=== PATIENT | female | born 1985 | race Caucasian/White ===

== ENCOUNTER → 2016-07-08 | Outpatient (REF) | payer OTHER ==
[2016-07-08 12:07] LABS: BASO % 0.4 % (0.0-1.0); EOS # 0.2 K/mm3 (0.0-0.50); EOS % 3.6 % (0.0-3.0); LYMPH # 1.9 K/mm3 (1.5-4.5); LYMPH % 27.2 % (24.0-44.0); MEAN CORPUSCULAR HEMOGLOBIN 28.8 pg (27.0-33.0); MEAN CORPUSCULAR HGB CONC 33.8 g/dl (32.0-36.5); MONO # 0.3 K/mm3 (0.0-0.8); MONO % 4.6 % (0.0-5.0); NEUTROPHILS # 4.3 K/mm3 (1.8-7.7); WHITE BLOOD COUNT 6.8 K/mm3 (4.0-10.0)
[2016-07-08 12:22] LABS: FOLATE 10.8 NG/ML; VITAMIN B12 LEVEL 763 PG/ML
[2016-07-08 12:30] LABS: ALBUMIN 3.8 GM/DL (3.2-5.2); ALBUMIN/GLOBULIN RATIO 1.19 (1.00-1.93); ALKALINE PHOSPHATASE 117 U/L (45-117); ALT/SGPT 19 U/L (12-78); ANION GAP 8 MEQ/L (8-16); AST/SGOT 8 U/L (15-37); BILIRUBIN,TOTAL 0.2 MG/DL (0.2-1.0); BLOOD UREA NITROGEN 17 MG/DL (7-18); CALCIUM LEVEL 8.9 MG/DL (8.5-10.1); CARBON DIOXIDE LEVEL 26 MEQ/L (21-32); CHLORIDE LEVEL 108 MEQ/L (98-107); CHOLESTEROL LEVEL 155 MG/DL (<200); CREATININE FOR GFR 0.73 MG/DL (0.55-1.02); GLOMERULAR FILTRATION RATE > 60.0 (>60); GLUCOSE, FASTING 88 MG/DL (70-105); POTASSIUM SERUM 3.6 MEQ/L (3.5-5.1); SODIUM LEVEL 142 MEQ/L (136-145); TRIGLYCERIDES LEVEL 151 MG/DL (<150)
== END | disposition home or self-care (01) ==
LOC: M LABDRAW1 11:36
PROVIDERS: ATTEND Physician Assistant Medical
DX: K21.9 Gastro-esophageal reflux disease without esophagitis (principal); F33.8 Other recurrent depressive disorders; E55.9 Vitamin D deficiency, unspecified; E78.2 Mixed hyperlipidemia; L63.9 Alopecia areata, unspecified; E66.9 Obesity, unspecified

== ENCOUNTER → 2016-08-10 | Outpatient (REF) | payer OTHER | END | disposition home or self-care (01) | LOC: M LAB REF 14:01 | PROVIDERS: ATTEND Advanced Practice Midwife | DX: Z01.419 Encounter for gynecological examination (general) (routine) without abnormal findings (principal); Z11.51 Encounter for screening for human papillomavirus (HPV); R87.610 Atypical squamous cells of undetermined significance on cytologic smear of cervix (ASC-US) ==

== ENCOUNTER → 2016-09-28 | Outpatient (CLI) | payer OTHER | LOC: M LAB 07:46 | PROVIDERS: ATTEND Physician Assistant Medical | DX: E55.9 Vitamin D deficiency, unspecified (principal); M13.80 Other specified arthritis, unspecified site ==

== ENCOUNTER → 2016-10-04 | Outpatient (REF) | payer OTHER | LOC: M LAB REF 09:29 | PROVIDERS: ATTEND Obstetrics & Gynecology | DX: R87.610 Atypical squamous cells of undetermined significance on cytologic smear of cervix (ASC-US) (principal); R87.612 Low grade squamous intraepithelial lesion on cytologic smear of cervix (LGSIL) ==

== ENCOUNTER → 2016-10-20 | Outpatient (CLI) | payer OTHER ==
[2016-10-20 11:11] LABS: CONTROL LINE HCG INT CTR LINE PRESENT
== END ==
LOC: M LAB 10:25
PROVIDERS: ATTEND Physician Assistant Medical
DX: N94.89 Other specified conditions associated with female genital organs and menstrual cycle (principal)

== ENCOUNTER 2016-10-26 07:34 | Emergency (ER) | payer OTHER ==
[~2016-10-26] VITALS: Ht 165.1 cm; Wt 117.9 kg
[2016-10-26 07:45] VITALS: BP 134/86
[2016-10-26 08:11] LABS: CONTROL LINE UCG INT CTR LINE PRESENT
== END 2016-10-26 08:27 | disposition home or self-care (01) ==
LOC: M ED 07:58
DX: Z32.02 Encounter for pregnancy test, result negative (principal)

== ENCOUNTER → 2016-11-02 | Outpatient (CLI) | payer OTHER ==
[2016-11-02 08:51] LABS: ALBUMIN 3.6 GM/DL (3.2-5.2); ALBUMIN/GLOBULIN RATIO 1.13 (1.00-1.93); ALKALINE PHOSPHATASE 121 U/L (45-117); ALT/SGPT 22 U/L (12-78); ANION GAP 5 MEQ/L (8-16); AST/SGOT 12 U/L (15-37); BILIRUBIN,TOTAL 0.2 MG/DL (0.2-1.0); BLOOD UREA NITROGEN 13 MG/DL (7-18); CALCIUM LEVEL 8.4 MG/DL (8.5-10.1); CARBON DIOXIDE LEVEL 28 MEQ/L (21-32); CHLORIDE LEVEL 107 MEQ/L (98-107); CHOLESTEROL LEVEL 134 MG/DL (<200); CREATININE FOR GFR 0.65 MG/DL (0.55-1.02); GLOMERULAR FILTRATION RATE > 60.0 (>60); GLUCOSE, FASTING 91 MG/DL (70-105); SODIUM LEVEL 140 MEQ/L (136-145); TOTAL PROTEIN 6.8 GM/DL (6.4-8.2); TRIGLYCERIDES LEVEL 153 MG/DL (<150)
== END ==
LOC: M LAB 07:56
PROVIDERS: ATTEND Physician Assistant Medical
DX: E78.2 Mixed hyperlipidemia (principal)

== ENCOUNTER → 2016-11-02 | Outpatient (CLI) | payer OTHER ==
[2016-11-02 08:44] LABS: MEAN CORPUSCULAR HEMOGLOBIN 28.9 pg (27.0-33.0); MEAN CORPUSCULAR HGB CONC 33.1 g/dl (32.0-36.5); MEAN CORPUSCULAR VOLUME 87.3 fl (80.0-96.0)
[2016-11-02 08:57] LABS: FREE T4 0.94 NG/DL (0.76-1.46); HCG, SERUM QUANTITATIVE < 1.0 MIU/ML; PROGESTERONE < 0.2 NG/ML; PROLACTIN 12.9 NG/ML
[2016-11-02 09:48] LABS: FOLLICLE STIMULATING HORMONE 5.3 mIU/mL
[2016-11-03 15:53] LABS: ESTRADIOL 35.9 PG/ML
[2016-11-03 15:53] LABS: WHITE BLOOD COUNT 6.2 K/mm3 (4.0-10.0)
[2016-11-05 00:06] LABS: 17 HYDROXY PROGESTERONE 53 ng/dL (.)
== END ==
LOC: M LAB 07:51
PROVIDERS: ATTEND Advanced Practice Midwife
DX: N92.6 Irregular menstruation, unspecified (principal)

== ENCOUNTER → 2016-11-04 | Outpatient (CLI) | payer OTHER ==
--- NOTE | 2016-11-04 19:20 | REP ---
PELVIC ULTRASOUND: Real-time sonographic evaluation of the pelvis was performed utilizing transabdominal and endovaginal technique. The bladder measures 7.8 x 5.3 x 7.0 cm. The uterus measures 6.6 x 2.8 x 4.4 cm. Endometrial thickness is 8 mm. There is no endometrial fluid collection. Ovaries are normal in size and echotexture, right ovary measuring 3.2 x 2.5 x 2.9 cm and the left ovary measuring 2.9 x 2.6 x 2.4 cm. There is no adnexal mass or free fluid. Subcentimeter Nabothian cyst is seen in the region of the cervix. IMPRESSION: Negative pelvic ultrasound. Signed by Lencho Dutton MD 11/04/2016 08:07 P
== END ==
LOC: M RAD 13:40
PROVIDERS: ATTEND Advanced Practice Midwife
DX: N92.0 Excessive and frequent menstruation with regular cycle (principal)

== ENCOUNTER → 2017-02-08 | Outpatient (CLI) | payer OTHER ==
[~2017-02-08] MED LIST: BUPR150T3 PO; IBUP-1022 PO; TOPA50TA8 PO; [UNRECOGNIZED DRUG - CODE] XX
[2017-02-08 18:02] LABS: CONTROL LINE HCG INT CTR LINE PRESENT
== END ==
LOC: M SMT 13:34
PROVIDERS: ATTEND Advanced Practice Midwife
DX: Z11.3 Encounter for screening for infections with a predominantly sexual mode of transmission (principal); N91.1 Secondary amenorrhea

== ENCOUNTER 2017-02-13 09:27 | Emergency (ER) | payer OTHER ==
[~2017-02-13] VITALS: Ht 165.1 cm; Wt 109.1 kg
[2017-02-13] MEDS ORDERED: BUPR150T3 PO (09:58)
[2017-02-13] MEDS ORDERED: TOPA50TA8 PO (09:58)
--- NOTE | 2017-02-13 11:42 | REP ---
RIGHT ANKLE SERIES: Four views. HISTORY: Trauma. FINDINGS: Four views right ankle are compared with the August 04, 2007 prior study. Ankle mortise is intact. No fracture or subluxation is seen. IMPRESSION: Mild lateral swelling. No fracture seen. Signed by Pranav Dixon MD 02/13/2017 12:35 P
[2017-02-13] MEDS ORDERED: IBUP-1022 PO (11:52)
[2017-02-13] MEDS ORDERED: [UNRECOGNIZED DRUG - CODE] XX (11:52)
[2017-02-13 12:19] VITALS: BP 111/61
== END 2017-02-13 12:23 | disposition home or self-care (01) ==
LOC: M ED 09:27
DX: S93.401A Sprain of unspecified ligament of right ankle, initial encounter (principal); S90.811A Abrasion, right foot, initial encounter; X50.1XXA Overexertion from prolonged static or awkward postures, initial encounter; Y92.009 Unspecified place in unspecified non-institutional (private) residence as the place of occurrence of the external cause; Y93.89 Activity, other specified; Y99.8 Other external cause status; Z79.899 Other long term (current) drug therapy

== ENCOUNTER → 2017-04-05 | Outpatient (CLI) | payer OTHER ==
[2017-04-05 10:55] LABS: BASO % 0.2 % (0.0-1.0); EOS # 0.3 10^3/uL (0.0-0.50); IMMATURE GRANULOCYTE % 0.2 % (0-0); LYMPH # 2.3 10^3/uL (1.5-4.5); LYMPH % 25.5 % (24.0-44.0); MEAN CORPUSCULAR HEMOGLOBIN 28.8 pg (27.0-33.0); MEAN CORPUSCULAR HGB CONC 33.3 g/dl (32.0-36.5); MEAN CORPUSCULAR VOLUME 86.3 fl (80.0-96.0); MONO # 0.5 10^3/uL (0.0-0.8); MONO % 5.6 % (0.0-5.0); NEUTROPHILS # 5.9 10^3/uL (1.8-7.7); NEUTROPHILS % 65.5 % (36.0-66.0); RED CELL DISTRIBUTION WIDTH 13.5 % (11.5-14.5)
[2017-04-05 11:22] LABS: ALBUMIN 3.6 GM/DL (3.2-5.2); ALBUMIN/GLOBULIN RATIO 1.09 (1.00-1.93); ALKALINE PHOSPHATASE 105 U/L (45-117); ALT/SGPT 21 U/L (12-78); ANION GAP 5 MEQ/L (8-16); AST/SGOT 11 U/L (15-37); BILIRUBIN,TOTAL 0.3 MG/DL (0.2-1.0); BLOOD UREA NITROGEN 11 MG/DL (7-18); CALCIUM LEVEL 9.4 MG/DL (8.5-10.1); CARBON DIOXIDE LEVEL 30 MEQ/L (21-32); CHLORIDE LEVEL 102 MEQ/L (98-107); CHOLESTEROL LEVEL 173 MG/DL (<200); CREATININE FOR GFR 0.59 MG/DL (0.55-1.02); GLOMERULAR FILTRATION RATE > 60.0 (>60); GLUCOSE, FASTING 83 MG/DL (70-105); POTASSIUM SERUM 4.7 MEQ/L (3.5-5.1); SODIUM LEVEL 137 MEQ/L (136-145); TOTAL PROTEIN 6.9 GM/DL (6.4-8.2); TRIGLYCERIDES LEVEL 116 MG/DL (<150)
== END ==
LOC: M LAB 09:56
PROVIDERS: ATTEND Physician Assistant Medical
DX: E78.2 Mixed hyperlipidemia (principal)

== ENCOUNTER 2017-08-19 07:34 | Emergency (ER) | payer OTHER | END 2017-08-19 08:38 | disposition home or self-care (01) | LOC: M ED 07:34 | DX: J02.9 Acute pharyngitis, unspecified (principal); F41.9 Anxiety disorder, unspecified; F33.9 Major depressive disorder, recurrent, unspecified; Z79.899 Other long term (current) drug therapy | CPT/HCPCS: 87880 ==

== ENCOUNTER → 2018-03-19 | Outpatient (REF) | payer OTHER | LOC: M SFHCPLAZ 14:02 | DX: Z00.00 Encounter for general adult medical examination without abnormal findings (principal); L65.9 Nonscarring hair loss, unspecified; F32.9 Major depressive disorder, single episode, unspecified; Z68.41 Body mass index [BMI] 40.0-44.9, adult; Z13.220 Encounter for screening for lipoid disorders ==

== ENCOUNTER → 2018-06-07 | Outpatient (CLI) | payer OTHER ==
[2018-06-07 15:12] LABS: HEMOGLOBIN 14.3 g/dl (12.0-15.5); MEAN CORPUSCULAR HEMOGLOBIN 28.6 pg (27.0-33.0); MEAN CORPUSCULAR HGB CONC 33.3 g/dl (32.0-36.5); PLATELET COUNT, AUTOMATED 231 10^3/uL (150-450); RED CELL DISTRIBUTION WIDTH 12.8 % (11.5-14.5); WHITE BLOOD COUNT 7.6 10^3/uL (4.0-10.0)
[2018-06-07 15:56] LABS: PROLACTIN 16.4 NG/ML
== END ==
LOC: M LAB 14:05
DX: N93.9 Abnormal uterine and vaginal bleeding, unspecified (principal)
CPT/HCPCS: 84146

== ENCOUNTER → 2018-06-07 | Outpatient (CLI) | payer OTHER | LOC: M RAD 13:54 | DX: N93.9 Abnormal uterine and vaginal bleeding, unspecified (principal) | CPT/HCPCS: 76856 ==

== ENCOUNTER → 2019-02-08 | Outpatient (REF) | payer OTHER ==
[2019-02-08 19:33] LABS: CHLAMYDIA DNA AMPLIFICATION NEGATIVE (NEGATIVE); GC DNA AMPLIFICATION NEGATIVE (NEGATIVE)
== END ==
LOC: M LAB REF 16:21
PROVIDERS: ATTEND Physician Assistant Medical
DX: Z11.3 Encounter for screening for infections with a predominantly sexual mode of transmission (principal)

== ENCOUNTER → 2019-05-24 | Outpatient (REF) | payer OTHER ==
[2019-05-24 17:41] LABS: APPEARANCE, URINE HAZY (CLEAR); BACTERIA, URINE AUTO NEGATIVE (NEGATIVE); BILIRUBIN, URINE AUTO NEGATIVE (NEGATIVE); BLOOD, URINE BLOOD NEGATIVE (NEGATIVE); COLOR, URINE YELLOW (YELLOW); GLUCOSE, URINE (UA) AUTO NEGATIVE (NEGATIVE); KETONE, URINE AUTO NEGATIVE (NEGATIVE); LEUKOCYTE ESTERASE, URINE AUTO NEGATIVE (NEGATIVE); MUCUS, URINE SMALL (NEGATIVE); NITRITE, URINE AUTO NEGATIVE (NEGATIVE); PROTEIN, URINE AUTO NEGATIVE (NEGATIVE); RBC, URINE AUTO 0 /HPF (0-3); SPECIFIC GRAVITY URINE AUTO 1.027 (1.002-1.035); SQUAMOUS EPITHELIAL CELL UR AU 3 /HPF (0-6); UROBILINOGEN, URINE AUTO 0.2 mg/dL (0.0-2.0); WBC, URINE AUTO 1 /HPF (0-3)
== END ==
LOC: M LAB REF 16:29
PROVIDERS: ATTEND Physician Assistant Medical
DX: N39.0 Urinary tract infection, site not specified (principal)

== ENCOUNTER → 2020-12-05 | Outpatient (REF) | payer OTHER ==
[~2020-12-05] MED LIST changes: +BUPR150T12 PO; -BUPR150T3 PO
== END ==
LOC: M LAB REF 18:42
PROVIDERS: ATTEND Physician Assistant
DX: N39.3 Stress incontinence (female) (male) (principal)

== ENCOUNTER 2021-04-11 15:14 | Emergency (ER) | payer OTHER ==
[~2021-04-11] VITALS: Ht 165.1 cm; Wt 122.7 kg
--- OUTSIDE RECORDS SUMMARY | 2021-04-11 15:20 | CCD | Continuity of Care Document ---
Author Author JOSUE RODRIGUEZ, Zarina Concepcion Organization Unknown Address [address] [place] [id number] Phone [phone] Care Team Providers Care Transformer Tester Name Role Phone AUTM Unavailable Elaine Aisf N.P. AUTM [phone] Nneka Degroot M.D. AUTM [phone] Problems Description No Active Problems Social History Type Date Description Comments Sex Unknown ETOH Use Denies alcohol use Tobacco Use Start: Unknown Social smoker Recreational Drug Use Denies Drug Use Exercise Type/Frequency Occasional Mild Exercise Allergies, Adverse Reactions, Alerts Description No Known Drug Allergies Medications Active Medications SIG Qnty Indications Ordering Provide r Date Bupropion Hydrochloride ER (XL) 300mg Tablets ER 24HR 1 by mouth every day Unknown 000 Lamotrigine 150mg Tablets 1 p o daily Unknown Dextroamphetamine Sulfate 30mg Tab lets 1 po daily Unknown Sertraline HCL 50mg Tablets 1 by mouth every day Unknown Immunizations Description No Information Available Vital Signs Date Vital Result Comment 03/16/2021 1:12pm BP Systolic 114 mmHg BP Diastolic 80 mmHg Heart Rate 91 /min Body Temperature 98.4 F Height 65 inches 5'5" Weight 278.50 lb BMI (Body Mass Index) 46.3 kg/m2 [place] Body Weight 125 lb Weight 126.328 kg BSA (Body Surface Area) 2.28 m2 04/04/2017 1:33pm BP Systolic 124 mmHg BP Diastolic 84 mmHg Height 65 inches 5'5" Weight 251.00 lb BMI (Body Mass Index) 41.8 kg/m2 [place] Body Weight 125 lb Weight 113.854 kg BSA (Body Surface Area) 2.18 m2 Results Description No Information Available Procedures Date Code Description Status 03/16/2021 81552 Office/Outpatient New MDM 15- 29 Minutes Completed Medical Devices Description No Information Available Encounters Type Date Location Provider Dx Diagnosis Office Visit 03/16/2021 1:00p [facility] Luis Fernando Valadez MD L98.9 Disorder of the skin and sub cutaneous tissue, unspecified Assessments Date Code Description Provider 03/16/2021 L98.9 Skin lesion Aubrey alcazar MD Plan of Treatment 03/16/2021 - Aubrey Valadez MD* L98.9 Skin lesion* Comments:* This could just been a small follicular pimple-like abscess that self drained. I do not see or note any underlying cyst, lump at the subcutaneous tissue just a mild chronic skin change associated with those pimple-like growth. Could also possibly be some localized skin reaction to the warmth, sweating during summer. I do not see anything to be biopsied or removed at this point.Follow- up as needed Functional Status Description No Information Available Mental Status Description No Information Available Referrals Refer to Reason for Referral Status Appt Date Aubrey Valadez MD ABDOMINAL CHEST WALL CYST Scheduled 03/16/[address] [place] [address] [phone]
--- OUTSIDE RECORDS SUMMARY | 2021-04-11 15:20 | CCD | Continuity of Care Document ---
Author Author JOSUE RODRIGUEZ, Zarina Concepcion Organization Unknown Address [address] [place] [address] Phone [phone] Care Team Providers Care Red Mud Thickener Operator Name Role Phone AUTM Unavailable Elaine Asif N.P. AUTM [phone] Nneka Degroot M.D. AUTM [phone] Problems Description No Active Problems Social History [...] lb BMI (Body Mass Index) 46.3 kg/m2 [place] Body Weight 125 lb Weight 126.328 kg BSA (Body Surface Area) 2.28 m2 04/04/2017 1:33pm BP Systolic 124 mmHg BP Diastolic 84 mmHg Height 65 inches 5'5" Weight 251.00 lb BMI (Body Mass Index) 41.8 kg/m2 [place] Body Weight 125 lb Weight 113.854 kg BSA (Body Surface Area) 2.18 m2 Results Description No Information Available Procedures Description No Information Available Medical Devices Description No Information Available Encounters Description No Information Available Assessments Description No Information Available Plan of Treatment No Information Available Functional Status Description No Information Available Mental Status Description No Information Available Referrals Refer to Reason for Referral Status Appt Date Aubrey Valadez MD ABDOMINAL CHEST WALL CYST Scheduled 03/16/2021 [address] [id number] [phone]
--- OUTSIDE RECORDS SUMMARY | 2021-04-11 15:20 | CCD ---
Author Author [facility] Organization [facility] Address Unknown Phone Unavailable Care Team Providers Care Dtp Operator Name Role Phone Radha SALAS MD Unavailable Unavailable Radha SALAS MD Unavailable Unavailable Radha SALAS MD Unavailable Unavailable Radha SALAS MD Unavailable Unavailable Radha SALAS MD Unavailable Unavailable Radha SALAS MD Unavailable Unavailable Radha SALAS MD Unavailable Unavailable Radha SALAS MD Unavailable Unavailable Radha SALAS MD Unavailable Unavailable Radha SALAS MD Unavailable Unavailable Radha SALAS MD Unavailable Unavailable Radha SALAS MD Unavailable Unavailable Radha SALAS MD Unavailable Unavailable Radha SALAS MD Unavailable Unavailable Radha SALAS MD Unavailable Unavailable Radha SALAS MD Unavailable Unavailable Radha SAALS MD Unavailable Unavailable Radha SALAS MD Unavailable Unavailable Radha SALAS MD Unavailable Unavailable Radha SALAS MD Unavailable Unavailable Radha SALAS MD Unavailable Unavailable Radha SALAS MD Unavailable Unavailable Radha SALAS MD Unavailable Unavailable Radha SALAS MD Unavailable Unavailable Radha SALAS MD Unavailable Unavailable Radha SALAS MD Unavailable Unavailable MANUELANADIARadha MD Unavailable Unavailable Radha SALAS MD Unavailable Unavailable Radha SALAS MD Unavailable Unavailable MANUELANADIARadha MD Unavailable Unavailable Radha SALAS MD Unavailable Unavailable MANUELANADIARadha MD Unavailable Unavailable MANUELANADIARadha MD Unavailable Unavailable Radha SALAS MD Unavailable Unavailable Pleskach, Elaine BALLING HEAD TENDER Unavailable Unavailable Pleskach, Elaine BALLING HEAD TENDER Unavailable Unavailable Pleskach, Elaine BALLING HEAD TENDER Unavailable Unavailable Pleskach, Elaine BALLING HEAD TENDER Unavailable Unavailable Pleskach, Elaine BALLING HEAD TENDER Unavailable Unavailable Pleskach, Elaine BALLING HEAD TENDER Unavailable Unavailable Pleskach, Elaine BALLING HEAD TENDER Unavailable Unavailable Pleskach, Elaine BALLING HEAD TENDER Unavailable Unavailable Pleskach, Elaine BALLING HEAD TENDER Unavailable Unavailable Pleskach, Elaine BALLING HEAD TENDER Unavailable Unavailable Pleskach, Elaine BALLING HEAD TENDER Unavailable Unavailable Pleskach, Elaine BALLING HEAD TENDER Unavailable Unavailable Pleskach, Elaine BALLING HEAD TENDER Unavailable Unavailable Pleskach, Elaine BALLING HEAD TENDER Unavailable Unavailable Pleskach, Elaine BALLING HEAD TENDER Unavailable Unavailable Pleskach, Elaine BALLING HEAD TENDER Unavailable Unavailable Pleskach, Elaine BALLING HEAD TENDER Unavailable Unavailable Pleskach, Elaine BALLING HEAD TENDER Unavailable Unavailable Pleskach, Elaine BALLING HEAD TENDER Unavailable Unavailable Pleskach, Elaine BALLING HEAD TENDER Unavailable Unavailable Pleskach, Elaine BALLING HEAD TENDER Unavailable Unavailable Pleskach, Elaine BALLING HEAD TENDER Unavailable Unavailable Pleskach, Elaine BALLING HEAD TENDER Unavailable Unavailable Pleskach, Elaine BALLING HEAD TENDER Unavailable Unavailable Pleskach, Elaine BALLING HEAD TENDER Unavailable Unavailable Pleskach, Elaine BALLING HEAD TENDER Unavailable Unavailable Pleskach, Elaine BALLING HEAD TENDER Unavailable Unavailable Pleskach, Elaine BALLING HEAD TENDER Unavailable Unavailable Pleskach, Elaine BALLING HEAD TENDER Unavailable Unavailable Pleskach, Elaine BALLING HEAD TENDER Unavailable Unavailable Pleskach, Elaine BALLING HEAD TENDER Unavailable Unavailable Pleskach, Elaine BALLING HEAD TENDER Unavailable Unavailable Pleskach, Elaine BALLING HEAD TENDER Unavailable Unavailable Pleskach, Elaine BALLING HEAD TENDER Unavailable Unavailable Pleskach, Elaine BALLING HEAD TENDER Unavailable Unavailable Pleskach, Elaine BALLING HEAD TENDER Unavailable Unavailable Pleskach, Elaine BALLING HEAD TENDER Unavailable Unavailable Pleskach, Elaine BALLING HEAD TENDER Unavailable Unavailable Pleskach, Elaine BALLING HEAD TENDER Unavailable Unavailable Pleskach, Elaine BALLING HEAD TENDER Unavailable Unavailable Pleskach, Elaine BALLING HEAD TENDER Unavailable Unavailable Pleskach, Elaine BALLING HEAD TENDER Unavailable Unavailable Wallace Arenas Unavailable Unavailable Re-disclosure Warning The records that you are about to access may contain information from federally-assisted alcohol or drug abuse programs. If such information is present, then the following federally mandated warning applies: This information has been disclosed to you from records protected by federal confidentiality rules (42 CFR part 2). The federal rules prohibit you from making any further disclosure of this information unless further disclosure is expressly permitted by the written consent of the person to whom it pertains or as otherwise permitted by 42 CFR part 2. A general authorization for the release of medical or other information is NOT sufficient for this purpose. The Federal rules restrict any use of the information to criminally investigate or prosecute any alcohol or drug abuse patient.The records that you are about to access may contain highly sensitive health information, the redisclosure of which is protected by Article 27-F of the [facility] Public Health law. If you continue you may have access to information: Regarding HIV / AIDS; Provided by facilities licensed or operated by the [facility] Office of Mental Health; or Provided by the [facility] Office for People With Developmental Disabilities. If such information is present, then the following [facility] mandated warning applies: This information has been disclosed to you from confidential records which are protected by state law. State law prohibits you from making any further disclosure of this information without the specific written consent of the person to whom it pertains, or as otherwise permitted by law. Any unauthorized further disclosure in violation of state law may result in a fine or mcc sentence or both. A general authorization for the release of medical or other information is NOT sufficient authorization for further disc losure. Family History Family Member Name Family Member Gender Family Member Status Date o f Status Description Data Source(s) Unknown Unknown Problem [facility] ([facility], ) Unknown Unknown Problem [facility] ([facility], ) Encounters Encounter Providers Location Date Indications Data Source(s ) Outpatient Attender: Wallace RUFFIN 01:53:55 PM EDT - 04/11/2021 02:42:48 PM EDT [facility] ([facility]) Outpatient Attender: JOCELYN Bautista/Caitlyn/[place]/ Marcella 03/16/2021 01:00:00 PM EDT [facility] ([facility], ) Outpatient Attender: Elaine Asif BALLING HEAD TENDER Main Office 02/18/2021 0 1:45:00 PM EDT [facility] ([facility] Medications Medication Brand Name Start Date Product Form Dose Route Admi nistrative Instructions Pharmacy Instructions Status Indications Reaction Description Data Source(s) Betamethasone 0.5 MG/ML Topical Cream Betamethasone Dipropio rufus 02/18/2021 12:00:00 AM EDT active M [facility] ([facility] Seasonique Seasonique 02/18/2021 12:00:00 AM EDT ORAL a ctive [facility] ([facility] Insurance Providers Payer name Policy type / Coverage type Policy ID Covered libertarian ID Covered libertarian's relationship to mosqueda Policy [place] Plan Information [employer] MCDHMO [id number] SP [id number] [employer] M[employer]MO [id number] SP [id number] [employer] MCDHMO [id number] SP [id number] [employer] MCDHMO [id number] SP [id number] [employer] MCDHMO [id number] SP [id number] [facility] Commercial [employer] Co. [id number] Self [id number] [employer] MCDHMO [id number] SP [id number] [facility] Hmo Commercial [id number] Self [id number] [facility] Nohemi/MCR Medigap Part B [id number] Self [id number] [facility] [employer]/MCR Health Maintenance Organization (HMO) [id number] Self [id number] [facility] O [id number] S [id number] [facility] [employer]hem[employer]/MCR Medigap Part B [id number] Self [id number] [facility]/MCR Health Maintenance Organization (HMO) [id number] Self [id number] [facility] [employer]hem[employer]/MCR Medigap Part B [id number] Self [id number] [facility] [employer] Health Maintenance Organization (HMO) [id number] Self [id number] ANSI-Medicaid [id number] [facility] [employer]/MCR Health Maintenance Organization (HMO) [id number] Self [id number] [facility] Health Maintenance Organization (HMO) [id number] Self [id number] [facility] [id number] Self [employer] MCDO [id number] SP [id number] [facility] [employer]/MCR Health Maintenance Organization (HMO) [id number] Self [facility](MCAID) O [id number] S [id number] [employer] COMM[employer]AN MCDHMO [id number] SP [id number] [employer] [id number] SP [id number] [employer] P [id number] S [id number] [employer] [id number] SP [id number] [employer] COMMUNITY PLAN MCDHMO [id number] SP [id number] MEDICAID [id number] SP [id number] [facility]-Medicaid [id number] Problems, Conditions, and Diagnoses Code Display Name Description Problem Type Effective Dates Data Source(s) E66.01 Morbid obesity Morbid obesity Problem 02/19/2021 12:00: 00 AM EDT [facility] ([facility] F43.23 Adjustment disorder with mixed emotional features Adjustment disorder with mixed emotional features Problem 02/19/2021 12:00:00 AM EDT MED E[facility] ([facility] Surgeries/Procedures Procedure Description Date Indications Data Source(s) OFFICE OUTPATIENT NEW 20 MINUTES 03/16/2021 12:00:00 A M EDT [facility] ([facility]) OFFICE OUTPATIENT VISIT 25 MINUTES 02/18/2021 12:00:00 AM EDT [facility] ([facility] PERIODIC PREVENTIVE MED EST PATIENT 18-39 YRS 02/19/20 12:00:00 AM EDT [facility] ([facility] Results No Information Social History No Information Vital Signs ID Date Data Source UNK Name Value Range Interpretation Code Description Data Source(s) Diastolic blood pressure 80 mm[Hg] 80 mm[Hg] [facility] ([facility]) Body temperature 98.4 [degF] 98.4 [degF] [facility] ([facility]) Heart rate 91 /min 91 /min [facility] ([facility]) Body height 65 [in_i] 65 [in_i] [facility] ([facility]) 5'5" Body weight 278.50 [lb_av] 278.50 [lb_av] MEDEN T ([facility]) [place] body weight 125 [lb_av] 125 [lb_av] MEDEN T ([facility]) Body mass index (BMI) [Ratio] 46.3 kg/m2 46.3 k g/m2 [facility] ([facility]) Body weight 126.328 kg 126.328 kg [facility] ([facility]) Body surface area Derived from formula 2.28 m2 2.28 m2 [facility] Systolic blood pressure 114 mm[Hg] 114 mm[Hg] M EDENT ([facility]) Body mass index (BMI) [Ratio] 46.7 kg/m2 46.7 k g/m2 [facility] ([facility] Body weight 280.38 [lb_av] 280.38 [lb_av] MEDEN T ([facility] Oxygen saturation in Arterial blood by Pulse oximetry 98 % 98 % [facility] ([facility] [place] body weight 125 [lb_av] 125 [lb_av] MEDEN T ([facility] Systolic blood pressure 125 mm[Hg] 125 mm[Hg] ED[facility] ([facility] Diastolic blood pressure 92 mm[Hg] 92 mm[Hg] [facility] ([facility] Heart rate 106 /min 106 /min [facility] ([facility] Body temperature 97.0 [degF] 97.0 [degF] [facility] ([facility] Respiratory rate 17 /min 17 /min [facility] ( [facility] Body height 65.0 [in_i] 65.0 [in_i] [facility] ([facility] 5'5"
[2021-04-11] MEDS ORDERED: LAMO150T3 PO (15:24)
[2021-04-11] MEDS ORDERED: SERT50TA29 PO (15:24)
[2021-04-11] MEDS ORDERED: ADDE1TAB14 PO (15:24)
[2021-04-11] MEDS ORDERED: BUPR300T92 PO (15:24)
--- NOTE | 2021-04-11 16:02 | REP ---
INDICATION: pain COMPARISON: None. TECHNIQUE: Internal rotation, external rotation, and Y view. FINDINGS: No acute fracture or dislocation. The acromioclavicular and glenohumeral joints are intact. No periarticular calcifications or degenerative changes are appreciated. Sub acromial space is normal. Surrounding soft tissues are unremarkable. IMPRESSION: Normal right shoulder radiographs. <Electronically signed by Bernard Echeverria > 04/11/21 [id number]
[2021-04-11] MEDS ORDERED: NAPR-837 PO (17:05)
--- OUTSIDE RECORDS SUMMARY | 2021-04-11 17:18 | CCD ---
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 Name Role Phone Radha SALAS MD Unavailable [...] Radha SALAS MD Unavailable Unavailable Pleskach, Elaine MEDICAL REVIEWER Unavailable Unavailable Pleskach, Elaine MEDICAL REVIEWER Unavailable Unavailable Pleskach, Elaine MEDICAL REVIEWER Unavailable Unavailable Pleskach, Elaine MEDICAL REVIEWER Unavailable Unavailable Pleskach, Elaine MEDICAL REVIEWER Unavailable Unavailable Pleskach, Elaine MEDICAL REVIEWER Unavailable Unavailable Pleskach, Elaine MEDICAL REVIEWER Unavailable Unavailable Pleskach, Elaine MEDICAL REVIEWER Unavailable Unavailable Pleskach, Elaine MEDICAL REVIEWER Unavailable Unavailable Pleskach, Elaine MEDICAL REVIEWER Unavailable Unavailable Pleskach, Elaine MEDICAL REVIEWER Unavailable Unavailable Pleskach, Elaine MEDICAL REVIEWER Unavailable Unavailable Pleskach, Elaine MEDICAL REVIEWER Unavailable Unavailable Pleskach, Elaine MEDICAL REVIEWER Unavailable Unavailable Pleskach, Elaine MEDICAL REVIEWER Unavailable Unavailable Pleskach, Elaine MEDICAL REVIEWER Unavailable Unavailable Pleskach, Elaine MEDICAL REVIEWER Unavailable Unavailable Pleskach, Elaine MEDICAL REVIEWER Unavailable Unavailable Pleskach, Elaine MEDICAL REVIEWER Unavailable Unavailable Pleskach, Elaine MEDICAL REVIEWER Unavailable Unavailable Pleskach, Elaine MEDICAL REVIEWER Unavailable Unavailable Pleskach, Elaine MEDICAL REVIEWER Unavailable Unavailable Pleskach, Elaine MEDICAL REVIEWER Unavailable Unavailable Pleskach, Elaine MEDICAL REVIEWER Unavailable Unavailable Pleskach, Elaine MEDICAL REVIEWER Unavailable Unavailable Pleskach, Elaine MEDICAL REVIEWER Unavailable Unavailable Pleskach, Elaine MEDICAL REVIEWER Unavailable Unavailable Pleskach, Elaine MEDICAL REVIEWER Unavailable Unavailable Pleskach, Elaine MEDICAL REVIEWER Unavailable Unavailable Pleskach, Elaine MEDICAL REVIEWER Unavailable Unavailable Pleskach, Elaine MEDICAL REVIEWER Unavailable Unavailable Pleskach, Elaine MEDICAL REVIEWER Unavailable Unavailable Pleskach, Elaine MEDICAL REVIEWER Unavailable Unavailable Pleskach, Elaine MEDICAL REVIEWER Unavailable Unavailable Pleskach, Elaine MEDICAL REVIEWER Unavailable Unavailable Pleskach, Elaine MEDICAL REVIEWER Unavailable Unavailable Pleskach, Elaine MEDICAL REVIEWER Unavailable Unavailable Pleskach, Elaine MEDICAL REVIEWER Unavailable Unavailable Pleskach, Elaine MEDICAL REVIEWER Unavailable Unavailable Pleskach, Elaine MEDICAL REVIEWER Unavailable Unavailable Pleskach, Elaine MEDICAL REVIEWER Unavailable Unavailable Pleskach, Elaine MEDICAL REVIEWER Unavailable Unavailable Wallace Arenas Unavailable Unavailable Re-disclosure [...] is protected by Article 27-F of the [facility] Public Health law. If you continue you may have access to information: Regarding HIV / AIDS; Provided by facilities licensed or operated by the [facility] Office of Mental Health; or Provided by the [facility] Office for People With Developmental Disabilities. If such information is present, then the following [facility] mandated warning applies: This information has been [...] law may result in a fine or long-term sentence or both. A general authorization for the release of medical or other information is NOT sufficient authorization for further disc losure. Family History Family Member Name Family Member Gender Family Member Status Date o f Status Description Data Source(s) Unknown Unknown Problem [facility] ([facility], ) Unknown Unknown Problem [facility] ([facility], ) Encounters Encounter Providers Location Date Indications Data Source(s ) Outpatient Attender: Wallace RUFFIN 01:53:55 PM EDT - 04/11/2021 02:42:48 PM EDT [facility] ([facility]) Outpatient Attender: JOCELYN Bautista/Caitlyn/Ventura/ Marcella 03/16/2021 01:00:00 PM EDT [facility] ([facility], ) Outpatient Attender: Elaine Asif MEDICAL REVIEWER Main Office 02/18/2021 0 1:45:00 PM EDT [...] type / Coverage type Policy ID Covered republican ID Covered republican's relationship to mosqueda Policy [place] Plan Information [facility] COMMUNITY PLAN MCDHMO [id number] SP [id number] [facility] COMMUNITY PLAN MCDHMO [id number] SP [id number] [facility] COMMUNITY PLAN MCDHMO [id number] SP [id number] [facility] COMMUNITY PLAN MCDHMO [id number] SP [id number] [facility] COMMUNITY PLAN MCDHMO [id number] SP [id number] [facility] [employer] [id number] Self [id number] [facility] COMMUNITY PLAN MCDHMO [id number] SP [id number] [facility] Hmo Commercial [id number] Self [id number] [facility] Nohem[facility]/MCR Medigap Part B [id number] Self [id number] [facility] Health Maintenance Organization (HMO) [id number] Self [id number] [facility] O [id number] S [id number] [facility]/MCR Medigap Part B [id number] Self [id number] [facility]/MCR Health Maintenance Organization (HMO) [id number] Self [id number] [facility]CR Medigap Part B [id number] Self [id number] [facility] Health Maintenance Organization (HMO) [id number] Self [id number] ANSI-Medicaid [id number] [facility] [employer] Health Maintenance Organization (HMO) [id number] Self [id number] [facility] Health Maintenance Organization (HMO) [id number] Self [id number] [facility] [id number] Self [employer] COMMUNITY PLAN MCDO [id number] SP [id number] [facility] Health Maintenance Organization (HMO) [id number] Self [facility]) O [id number] S [id number] [employer] COMMUNITY PLAN MCDHMO [id number] SP [id number] [employer] [id number] SP [id number] [employer] P [id number] S [id number] [employer] [id number] SP [id number] [employer] COMMUNITY PLAN MCDHMO [id number] SP [id number] MEDICAID [id number] SP [id number] [facility] [id number] Problems, Conditions, and Diagnoses Code Display Name [...] MINUTES 03/16/2021 12:00:00 A M EDT [facility] ([facility]) OFFICE OUTPATIENT VISIT 25 MINUTES 02/18/2021 12:00:00 AM EDT [facility] ([facility] PERIODIC PREVENTIVE MED EST PATIENT 18-39 YRS 02/19/20 12:00:00 AM EDT [facility] ([facility] Results No Information Social History No Information Vital Signs ID Date Data Source UNK Name Value Range Interpretation Code Description Data Source(s) Diastolic blood pressure 80 mm[Hg] 80 mm[Hg] [facility] 91 /min 91 /[facility] Body temperature 98.4 [degF] 98.4 [degF] [facility] ([facility]) Body height 65 [in_i] 65 [in_i] [facility] 5'5" Body weight 278.50 [lb_av] 278.50 [lb_av] [facility] T ([facility]) Body mass index (BMI) [Ratio] 46.3 kg/m2 46.3 k g/m2 [facility] ([facility]) [place] body weight 125 [lb_av] 125 [lb_av] [facility] T ([facility]) Body weight 126.328 kg 126.328 kg [facility] ([facility]) Body surface area Derived from formula 2.28 m2 2.28 m2 [facility] ([facility]) Systolic blood pressure 114 mm[Hg] 114 mm[Hg] M EDENT ([facility]) Body mass index (BMI) [Ratio] 46.7 kg/m2 46.7 k g/m2 [facility] ([facility] Body weight 280.38 [lb_av] 280.38 [lb_av] [facility] T ([facility] Oxygen saturation in Arterial blood by Pulse oximetry 98 % 98 % [facility] ([facility] [place] body weight 125 [lb_av] 125 [lb_av] MEDEN [...]
[2021-04-11 17:19] VITALS: BP 133/84
== END 2021-04-11 17:23 | disposition home or self-care (01) ==
LOC: M ED 15:14
DX: M25.511 Pain in right shoulder (principal); F33.9 Major depressive disorder, recurrent, unspecified; F41.9 Anxiety disorder, unspecified; Z79.899 Other long term (current) drug therapy

== ENCOUNTER → 2021-04-22 | Outpatient (CLI) | payer OTHER ==
[~2021-04-22] MED LIST changes: +ADDE1TAB14 PO; +BUPR300T92 PO; +LAMO150T3 PO; +NAPR-837 PO; +SERT50TA29 PO
[2021-04-22 10:46] LABS: ALBUMIN 3.5 GM/DL (3.2-5.2); ALT/SGPT 18 U/L (12-78); BILIRUBIN,TOTAL 0.3 MG/DL (0.2-1.0); BLOOD UREA NITROGEN 15 MG/DL (7-18); CALCIUM LEVEL 8.6 MG/DL (8.5-10.1); CARBON DIOXIDE LEVEL 30 MEQ/L (21-32); CHLORIDE LEVEL 108 MEQ/L (98-107); CHOLESTEROL LEVEL 151 MG/DL (<200); CHOLESTEROL RISK RATIO 3.355 (<5); CREATININE FOR GFR 0.72 MG/DL (0.55-1.30); GLOMERULAR FILTRATION RATE > 60.0 (>60); GLUCOSE, FASTING 91 MG/DL (70-100); HDL CHOLESTEROL 45 MG/DL (>40); LDL CHOLESTEROL 92 MG/DL (<100); NON-HDL-C 106 MG/DL; POTASSIUM SERUM 4.5 MEQ/L (3.5-5.1); SODIUM LEVEL 139 MEQ/L (136-145); TOTAL PROTEIN 6.9 GM/DL (6.4-8.2); TRIGLYCERIDES LEVEL 72 MG/DL (<150)
== END ==
LOC: M LAB 09:16
PROVIDERS: ATTEND Nurse Practitioner Family
DX: Z00.00 Encounter for general adult medical examination without abnormal findings (principal)

== ENCOUNTER 2021-06-24 13:30 | Outpatient (RCR) | payer OTHER | END 2021-06-25 | LOC: M PT 13:30 | PROVIDERS: ATTEND Orthopaedic Surgery Sports Medicine | DX: S43.431A Superior glenoid labrum lesion of right shoulder, initial encounter (principal); M25.311 Other instability, right shoulder ==

== ENCOUNTER 2021-07-22 11:20 | Outpatient (RCR) | payer OTHER | END 2021-07-26 | LOC: M PT 11:20 | PROVIDERS: ATTEND Orthopaedic Surgery Sports Medicine | DX: S43.431A Superior glenoid labrum lesion of right shoulder, initial encounter (principal); M25.311 Other instability, right shoulder ==

== ENCOUNTER → 2022-09-09 | Outpatient (CLI) | payer OTHER ==
[2022-09-09 11:48] LABS: HEMOGLOBIN A1c 5.2 % (4.0-6.0)
[2022-09-09 11:49] LABS: ALBUMIN 3.8 G/DL (3.2-5.2); ALKALINE PHOSPHATASE 131 U/L (46-116); ALT/SGPT 17 U/L (7.0-40); AST/SGOT 18 U/L (<34); BILIRUBIN,TOTAL 0.4 MG/DL (0.3-1.2); BLOOD UREA NITROGEN 15 MG/DL (9-23); CALCIUM LEVEL 8.8 MG/DL (8.5-10.1); CARBON DIOXIDE LEVEL 29 MMOL/L (20-31); CHLORIDE LEVEL 103 MMOL/L (98-107); CHOLESTEROL LEVEL 146 MG/DL (<200); CHOLESTEROL RISK RATIO 3.16 (<5); CREATININE FOR GFR 0.64 MG/DL (0.55-1.30); FREE T4 0.85 NG/DL (0.89-1.76); GLOMERULAR FILTRATION RATE > 60.0 (>60); GLUCOSE, FASTING 83 MG/DL (60-100); HDL CHOLESTEROL 46.2 MG/DL (>40); NON-HDL-C 99.8 MG/DL; POTASSIUM SERUM 4.2 MMOL/L (3.5-5.1); SODIUM LEVEL 137 MMOL/L (136-145); THYROID STIMULATING HORMONE 2.999 uIU/ML (0.55-4.78); TOTAL 25(OH) VITAMIN D 24.4 NG/ML (20.0-100.0)
[2022-09-09 18:06] LABS: LDL CHOLESTEROL 79.2 MG/DL (<100); TOTAL PROTEIN 6.5 G/DL (5.7-8.2); TRIGLYCERIDES LEVEL 103 MG/DL (<150)
== END ==
LOC: M LAB 10:25
PROVIDERS: ATTEND Nurse Practitioner Family
DX: I10 Essential (primary) hypertension (principal)

== ENCOUNTER 2024-01-18 13:04 | Emergency (ER) | payer OTHER ==
[~2024-01-18] VITALS: Ht 167.6 cm; Wt 119.6 kg
[~2024-01-18 13:04] MED LIST changes: +BUPR-597 PO; -BUPR300T92 PO
[2024-01-18] MEDS: RABIES VACCINE HUMAN 2.5 INTERNATIONAL UNITS/ML VIAL IM ONE (15:55)
[2024-01-18] MEDS: RABIES IMMUNE GLOBULIN 1500 INTERNATIONAL UNIT/5ML VIAL IM.IMMUN ONE (15:56)
[2024-01-18 16:12] VITALS: BP 123/82; TEMP 97.9; O2SAT 94
== END 2024-01-18 16:13 | disposition home or self-care (01) ==
LOC: M ED 13:04
DX: Z20.3 Contact with and (suspected) exposure to rabies (principal); Z79.899 Other long term (current) drug therapy

== ENCOUNTER 2024-01-20 11:15 | Emergency (ER) | payer OTHER ==
[~2024-01-20] VITALS: Ht 172.7 cm; Wt 104.5 kg
[2024-01-20 11:16] VITALS: BP 126/86; TEMP 98.3; O2SAT 96
== END 2024-01-20 12:33 | disposition left against medical advice (07) ==
LOC: M ED 11:15
DX: Z53.21 Procedure and treatment not carried out due to patient leaving prior to being seen by health care provider (principal)

== ENCOUNTER 2024-01-21 12:21 | Emergency (ER) | payer OTHER ==
[~2024-01-21] VITALS: Ht 165.1 cm; Wt 118.0 kg
[2024-01-21 12:22] VITALS: BP 132/84; TEMP 96.3; O2SAT 96
[2024-01-21] MEDS: RABIES VACCINE HUMAN 2.5 INTERNATIONAL UNITS/ML VIAL IM ONE (12:45)
== END 2024-01-21 13:00 | disposition home or self-care (01) ==
LOC: M ED 12:21
DX: Z20.3 Contact with and (suspected) exposure to rabies (principal); Z23 Encounter for immunization

== ENCOUNTER 2024-03-12 22:23 | Emergency (ER) | payer OTHER ==
[~2024-03-12] VITALS: Ht 165.1 cm; Wt 117.1 kg
[2024-03-12] MEDS: methylPREDNISolone 125MG 2ML VIAL IV ONE (22:55)
[2024-03-12] MEDS: FAMOTIDINE 20MG/2ML VIAL IVP ONE (22:55)
[2024-03-12] MEDS: diphenhydrAMINE 50MG/ML VIAL IV ONE (22:55)
[2024-03-12 23:30] VITALS: BP 131/78
[2024-03-12] MEDS ORDERED: PRED20TA PO (23:30)
[2024-03-12] MEDS ORDERED: BENA25CA4 PO (23:32)
[2024-03-12 23:38] VITALS: O2SAT 93
[2024-03-12 23:49] VITALS: TEMP 98.8
[2024-03-13] MEDS ORDERED: PEPC1TAB5 PO (18:36)
[2024-03-13] MEDS ORDERED: EPIP0.3I2 IM (18:36)
== END 2024-03-13 00:01 | disposition home or self-care (01) ==
LOC: M ED 22:23
DX: L29.9 Pruritus, unspecified (principal); T36.8X5A Adverse effect of other systemic antibiotics, initial encounter; Z88.1 Allergy status to other antibiotic agents; Z79.52 Long term (current) use of systemic steroids; Z79.899 Other long term (current) drug therapy
CPT/HCPCS: 93041; 94760; 96361; 96372; 96374; 96375; 99284; J0171; J1200; J2405; J2919; S0028

== ENCOUNTER 2024-03-13 12:16 | Emergency (ER) | payer OTHER ==
[~2024-03-13] VITALS: Ht 165.1 cm; Wt 115.7 kg
[~2024-03-13 12:16] MED LIST changes: +BENA25CA4 PO; +PRED20TA PO
[2024-03-13] MEDS ORDERED: EPINEPHrine INJ 1 MG/ML 1ML AMP SC STA (13:52)
[2024-03-13] MEDS: EPINEPHrine INJ 1 MG/ML 1ML AMP IM STA (14:15)
[2024-03-13] MEDS: diphenhydrAMINE 50MG/ML VIAL IV ONE (14:18)
[2024-03-13] MEDS: NS 1,000 ML IV ONE (14:18)
[2024-03-13] MEDS: ONDANSETRON 4MG 2ML VIAL IV ONE (14:18)
[2024-03-13] MEDS: FAMOTIDINE 20MG/2ML VIAL IVP ONE (14:20)
[2024-03-13] MEDS ORDERED: EPIP0.3I2 IM (18:36)
[2024-03-13] MEDS ORDERED: PEPC1TAB5 PO (18:36)
[2024-03-13 18:55] VITALS: BP 138/85; TEMP 98.3; O2SAT 96
== END 2024-03-13 18:58 | disposition home or self-care (01) ==
LOC: M ED 12:16
DX: T88.6XXA Anaphylactic reaction due to adverse effect of correct drug or medicament properly administered, initial encounter (principal); Z88.1 Allergy status to other antibiotic agents; Z79.52 Long term (current) use of systemic steroids; Z79.899 Other long term (current) drug therapy
CPT/HCPCS: 93041; 96361; 96372; 96374; 96375; 99284; J0171; J1200; J2405; S0028

== ENCOUNTER → 2024-08-23 | Outpatient (REF) | payer OTHER ==
[~2024-08-23] MED LIST changes: +EPIP0.3I2 IM; +PEPC1TAB5 PO
== END ==
LOC: M LAB REF 16:26
PROVIDERS: ATTEND Internal Medicine
DX: Z11.4 Encounter for screening for human immunodeficiency virus [HIV] (principal)